=== PATIENT | female | born 1980 | race Caucasian/White ===

== ENCOUNTER 2017-03-15 21:28 | Emergency (ER) | payer MEDICARE, MEDICAID ==
[~2017-03-15] VITALS: Ht 167.6 cm; Wt 77.0 kg
[2017-03-15 21:30] VITALS: BP 144/83
[2017-03-15] MEDS ORDERED: DIPH,PERTUSS(ACELL),TET VAC/PF 0.5 ML IM-VACC ONE ×2 (21:59→22:00)
[2017-03-15] MEDS ORDERED: LIDOCAINE 1%, 20ML ONE (21:59)
[2017-03-15] MEDS ORDERED: LIDOCAINE 1%, 20ML SQ ONE (22:00)
[2017-03-15] MEDS ORDERED: BACITRACIN ZINC OINT 500U/GM, 0.9 GM ONE (23:00)
== END 2017-03-15 23:18 | disposition home or self-care (01) ==
LOC: ED 23:12
DX: S61.210A Laceration without foreign body of right index finger without damage to nail, initial encounter (principal); W26.0XXA Contact with knife, initial encounter; Y93.89 Activity, other specified; Y92.009 Unspecified place in unspecified non-institutional (private) residence as the place of occurrence of the external cause; Y99.9 Unspecified external cause status
CPT/HCPCS: 12001; 90471; 90715